=== PATIENT | female | born 1980 | race Caucasian/White ===

== ENCOUNTER 2018-02-19 16:19 | Outpatient (CLI) | payer MEDICAID ==
[2018-02-19 19:11] LABS: ADD UMIC NO; UR ASCORBIC ACID NEGATIVE (NEGATIVE); UR BILIRUBIN (Dip) NEGATIVE (NEGATIVE); UR BLOOD (Dip) NEGATIVE (NEGATIVE); UR CLARITY CLEAR (CLEAR); UR COLOR STRAW (YELLOW); UR GLUCOSE (Dip) NEGATIVE (NEGATIVE); UR KETONES (Dip) NEGATIVE (NEGATIVE); UR LEUKOCYTE ESTERASE (Dip) NEGATIVE Leu/ul (NEGATIVE); UR NITRITE (Dip) NEGATIVE (NEGATIVE); UR SPECIFIC GRAVITY (Dip) 1.004 (1.003-1.030); UR TOTAL PROTEIN (Dip) NEGATIVE (NEGATIVE); UR UROBILINOGEN (Dip) NEGATIVE (NEGATIVE)
== END 2018-02-19 20:15 | disposition home or self-care (01) ==
LOC: OBT 16:19 → L-D 16:20 → OBT 20:15
DX: O26.892 Other specified pregnancy related conditions, second trimester (principal); R10.30 Lower abdominal pain, unspecified; O09.522 Supervision of elderly multigravida, second trimester; Z3A.20 20 weeks gestation of pregnancy
CPT/HCPCS: 76817; 81003

== ENCOUNTER 2018-05-10 09:08 | Outpatient (CLI) | payer MEDICAID ==
[2018-05-10 12:37] LABS: COLLECTION PERIOD 24 hrs
[2018-05-10 13:47] LABS: COLLECTION PERIOD 24 hrs; CREATININE,URINE RANDOM 25.56 mg/dl (20-320); VOLUME 3200 ml/24hrs
[2018-05-10 13:48] LABS: VOLUME 3200 mls
[2018-05-11 11:28] LABS: CREATININE CLEARANCE 94.7 mls/min (84.0-162.0)
== END 2018-05-10 09:25 | disposition left against medical advice (07) ==
LOC: OBT 09:08 → L-D 09:12 → OBT 09:25
DX: O24.419 Gestational diabetes mellitus in pregnancy, unspecified control (principal); Z3A.32 32 weeks gestation of pregnancy
CPT/HCPCS: 82575; 84156

== ENCOUNTER 2018-05-11 10:35 | Outpatient (CLI) | payer MEDICAID ==
[2018-05-11 11:04] LABS: ADD MAN DIFF? NO
[2018-05-11 11:10] LABS: BASOPHILS % 0.3 % (0.0-2.0); EOSINOPHILS # 0.1 10^3/ul (0.0-0.5); EOSINOPHILS % 1.1 % (0.0-7.0); HEMATOCRIT 35.5 % (37.0-47.0); LYMPHOCYTES # 1.9 10^3/ul (0.8-2.9); LYMPHOCYTES % 21.7 % (15.0-51.0); MEAN CORPUSCULAR HEMOGLOBIN 29.9 pg (29.0-33.0); MEAN CORPUSCULAR HGB CONC 33.8 g/dl (32.0-37.0); MEAN CORPUSCULAR VOLUME 88.3 fl (82.0-101.0); MEAN PLATELET VOLUME 10.5 fl (7.4-10.4); MONOCYTE # 0.6 10^3/ul (0.3-0.9); MONOCYTES % 6.6 % (0.0-11.0); NEUTROPHIL # 6.2 10^3/ul (1.6-7.5); NEUTROPHILS % 69.2 % (39.0-77.0); PLATELET COUNT 155 10^3/UL (140-415); RED BLOOD COUNT 4.02 10^6/ul (4.20-5.40)
[2018-05-11 11:10] LABS: WHITE BLOOD COUNT 8.9 10^3/ul (4.8-10.8)
[2018-05-11 11:14] LABS: ADD UMIC NO; UR ASCORBIC ACID NEGATIVE (NEGATIVE); UR BILIRUBIN (Dip) NEGATIVE (NEGATIVE); UR BLOOD (Dip) NEGATIVE (NEGATIVE); UR CLARITY CLEAR (CLEAR); UR COLOR STRAW (YELLOW); UR GLUCOSE (Dip) 1+ mg/dL (NEGATIVE); UR KETONES (Dip) NEGATIVE (NEGATIVE); UR LEUKOCYTE ESTERASE (Dip) NEGATIVE Leu/ul (NEGATIVE); UR NITRITE (Dip) NEGATIVE (NEGATIVE); UR SPECIFIC GRAVITY (Dip) 1.004 (1.003-1.030); UR TOTAL PROTEIN (Dip) NEGATIVE (NEGATIVE); UR UROBILINOGEN (Dip) NEGATIVE (NEGATIVE)
[2018-05-11 11:25] LABS: ALANINE AMINOTRANSFERASE 23 IU/L (13-69); ALBUMIN 3.3 g/dl (3.3-4.9); ALBUMIN/GLOBULIN RATIO 1.03; ALKALINE PHOSPHATASE 115 IU/L (42-121); ANION GAP 12 (8-16); ASPARTATE AMINO TRANSFERASE 17 IU/L (15-46); BILIRUBIN,INDIRECT 0.2 mg/dl (0-1.1); BILIRUBIN,TOTAL 0.2 mg/dl (0.2-1.3); BLOOD UREA NITROGEN 6 mg/dl (7-20); CALCIUM 9.1 mg/dl (8.4-10.2); CARBON DIOXIDE 19 mmol/L (21-31); CHLORIDE 111 mmol/L (97-110); GLUCOSE 108 mg/dl (70-220); POTASSIUM 3.9 mmol/L (3.5-5.1); SODIUM 138 mmol/L (135-144); TOTAL PROTEIN 6.5 g/dl (6.1-8.1); URIC ACID 4.1 mg/dl (3.1-7.9)
[2018-05-11 11:32] LABS: INR 0.89; PROTIME 12.1 Sec (11.9-14.9); PT RATIO 0.9
[2018-05-11 11:56] LABS: PARTIAL THROMBOPLASTIN TIME 24.7 Sec (25.0-35.0)
[2018-05-11 13:04] LABS: HEMOGLOBIN A1C 5.7 % (0-5.9)
== END 2018-05-11 12:50 | disposition home or self-care (01) ==
LOC: OBT 10:35 → L-D 10:36 → OBT 12:50
DX: O24.419 Gestational diabetes mellitus in pregnancy, unspecified control (principal); O12.13 Gestational proteinuria, third trimester; Z3A.32 32 weeks gestation of pregnancy
CPT/HCPCS: 36415; 76818; 80053; 81003; 83036; 84560; 85025; 85610; 85730

== ENCOUNTER 2018-05-15 12:11 | Inpatient (IN) | payer MEDICAID ==
[2018-05-15 14:50] LABS: HEMOGLOBIN A1C 5.6 % (0-5.9)
[2018-05-15] MEDS ORDERED: ACETAMINOPHEN 325 MG TAB PO (15:00)
[2018-05-15] MEDS ORDERED: ONDANSETRON 4 MG INJ IV (15:00)
[2018-05-15] MEDS: LACTATED RINGER'S 1,000 ML IV (15:04)
[2018-05-15] MEDS: MAGNESIUM SULFATE 4 GM/100 ML 100 ML IV (15:07)
[2018-05-15] MEDS: BETAMET NA PHOS/AC(6 MG/ML) 5ML INJ IM (15:12)
[2018-05-15] MEDS: MAGNESIUM SULFATE 20 GM/500 ML 500 ML IV (15:39)
[2018-05-15 19:27] LABS: MAGNESIUM 4.6 mg/dl (1.7-2.5)
[2018-05-16 01:23] LABS: MAGNESIUM 5.2 mg/dl (1.7-2.5)
[2018-05-16] MEDS: MAGNESIUM SULFATE 20 GM/500 ML 500 ML IV ×3 (01:41→23:43)
[2018-05-16] MEDS: LACTATED RINGER'S 1,000 ML IV ×3 (01:42→23:43)
[2018-05-16 06:57] LABS: MAGNESIUM 5.6 mg/dl (1.7-2.5)
[2018-05-16] MEDS: metFORMIN 500 MG TAB PO ×2 (07:35→17:35)
[2018-05-16] MEDS: ACCU-CHEK XX ×4 (07:45→19:50)
[2018-05-16 12:25] LABS: MAGNESIUM 5.3 mg/dl (1.7-2.5)
[2018-05-16] MEDS: BETAMET NA PHOS/AC(6 MG/ML) 5ML INJ IM (15:38)
[2018-05-16 16:49] LABS: COLLECTION PERIOD 24 hrs
[2018-05-16 17:34] LABS: COLLECTION PERIOD 24 hrs; CREATININE CLEARANCE 147.1 mls/min (84.0-162.0); VOLUME 7675 ml/24hrs
[2018-05-16 17:44] LABS: VOLUME 7675 mls
[2018-05-16 18:16] LABS: MAGNESIUM 5.5 mg/dl (1.7-2.5)
[2018-05-17 01:32] LABS: MAGNESIUM 5.1 mg/dl (1.7-2.5)
[2018-05-17] MEDS: LACTATED RINGER'S 1,000 ML IV (05:20)
[2018-05-17] MEDS: MAGNESIUM SULFATE 20 GM/500 ML 500 ML IV (08:50)
== END 2018-05-17 13:30 | disposition home or self-care (01) | DRG 781 ==
LOC: OBT 12:11 → L-D 12:11 → OBT 13:05 → L-D 13:05
PROVIDERS: Obstetrics & Gynecology
DX: O24.419 Gestational diabetes mellitus in pregnancy, unspecified control (principal); O60.03 Preterm labor without delivery, third trimester; O10.913 Unspecified pre-existing hypertension complicating pregnancy, third trimester; O12.13 Gestational proteinuria, third trimester; O40.3XX0 Polyhydramnios, third trimester, not applicable or unspecified; O36.63X0 Maternal care for excessive fetal growth, third trimester, not applicable or unspecified; Z3A.33 33 weeks gestation of pregnancy
CPT/HCPCS: 59025; 76815; 76816; 76818; 82565; 82575; 82731; 82962; 83036; 83735; 84156

== ENCOUNTER 2018-05-22 09:50 | Outpatient (CLI) | payer MEDICAID ==
[2018-05-22 10:23] LABS: COLLECTION PERIOD 24 hrs
[2018-05-22 10:30] LABS: ADD MAN DIFF? NO
[2018-05-22 10:32] LABS: WHITE BLOOD COUNT 9.2 10^3/ul (4.8-10.8)
[2018-05-22 10:32] LABS: BASOPHILS % 0.3 % (0.0-2.0); EOSINOPHILS # 0.1 10^3/ul (0.0-0.5); EOSINOPHILS % 0.8 % (0.0-7.0); HEMATOCRIT 39.3 % (37.0-47.0); HEMOGLOBIN 13.4 g/dl (12.0-16.0); LYMPHOCYTES # 2.3 10^3/ul (0.8-2.9); LYMPHOCYTES % 24.6 % (15.0-51.0); MEAN CORPUSCULAR HEMOGLOBIN 29.9 pg (29.0-33.0); MEAN CORPUSCULAR HGB CONC 34.1 g/dl (32.0-37.0); MEAN CORPUSCULAR VOLUME 87.7 fl (82.0-101.0); MONOCYTE # 0.5 10^3/ul (0.3-0.9); MONOCYTES % 5.2 % (0.0-11.0); NEUTROPHIL # 6.3 10^3/ul (1.6-7.5); NEUTROPHILS % 68.3 % (39.0-77.0); PLATELET COUNT 146 10^3/UL (140-415); RED BLOOD COUNT 4.48 10^6/ul (4.20-5.40); RED CELL DISTRIBUTION WIDTH 14.2 % (11.5-14.5)
[2018-05-22 10:35] LABS: ADD UMIC YES; UR ASCORBIC ACID NEGATIVE (NEGATIVE); UR BACTERIA FEW /HPF (NONE SEEN); UR BILIRUBIN (Dip) NEGATIVE (NEGATIVE); UR BLOOD (Dip) NEGATIVE (NEGATIVE); UR CLARITY CLEAR (CLEAR); UR COLOR YELLOW (YELLOW); UR GLUCOSE (Dip) NEGATIVE (NEGATIVE); UR KETONES (Dip) NEGATIVE (NEGATIVE); UR LEUKOCYTE ESTERASE (Dip) TRACE Leu/ul (NEGATIVE); UR NITRITE (Dip) NEGATIVE (NEGATIVE); UR RBC 0 /HPF (0-5); UR SPECIFIC GRAVITY (Dip) 1.013 (1.003-1.030); UR TOTAL PROTEIN (Dip) NEGATIVE (NEGATIVE); UR UROBILINOGEN (Dip) NEGATIVE (NEGATIVE); UR WBC 1 /HPF (0-5)
[2018-05-22 10:50] LABS: ALANINE AMINOTRANSFERASE 15 IU/L (13-69); ALBUMIN 3.6 g/dl (3.3-4.9); ALBUMIN/GLOBULIN RATIO 1.09; ALKALINE PHOSPHATASE 134 IU/L (42-121); ANION GAP 14 (8-16); ASPARTATE AMINO TRANSFERASE 16 IU/L (15-46); BILIRUBIN,INDIRECT 0.4 mg/dl (0-1.1); BILIRUBIN,TOTAL 0.4 mg/dl (0.2-1.3); BLOOD UREA NITROGEN 8 mg/dl (7-20); CALCIUM 9.5 mg/dl (8.4-10.2); CARBON DIOXIDE 18 mmol/L (21-31); CHLORIDE 109 mmol/L (97-110); CREATININE 0.53 mg/dl (0.44-1.00); GLUCOSE 119 mg/dl (70-220); POTASSIUM 4.1 mmol/L (3.5-5.1); SODIUM 137 mmol/L (135-144); TOTAL PROTEIN 6.9 g/dl (6.1-8.1); URIC ACID 5.1 mg/dl (3.1-7.9)
[2018-05-22 10:53] LABS: INR 0.85; PARTIAL THROMBOPLASTIN TIME 24.7 Sec (25.0-35.0); PROTIME 11.7 Sec (11.9-14.9); PT RATIO 0.9
[2018-05-22 11:11] LABS: SCRET 0.53 mg/dl (0.44-1.00)
[2018-05-22 11:12] LABS: COLLECTION PERIOD 24 hrs; VOLUME 6600 ml/24hrs
[2018-05-22 11:13] LABS: VOLUME 6600 mls
[2018-05-22 11:32] LABS: CREATININE CLEARANCE 194.1 mls/min (84.0-162.0); CREATININE,URINE RANDOM 22.44 mg/dl (20-320)
[2018-05-22 11:33] LABS: 24HR URINE TOTAL PROTEIN > 600.0 mg/24hrs (42.0-225.0)
== END 2018-05-22 12:25 | disposition home or self-care (01) ==
LOC: OBT 09:50 → L-D 09:50 → OBT 12:25
DX: O13.3 Gestational [pregnancy-induced] hypertension without significant proteinuria, third trimester (principal); O36.8330 Maternal care for abnormalities of the fetal heart rate or rhythm, third trimester, not applicable or unspecified; O09.523 Supervision of elderly multigravida, third trimester; Z3A.33 33 weeks gestation of pregnancy
CPT/HCPCS: 36415; 76818; 80053; 81001; 82575; 84156; 84560; 85025; 85610; 85730

== ENCOUNTER 2018-05-28 19:47 | Outpatient (CLI) | payer MEDICAID ==
[2018-05-28 19:58] LABS: COLLECTION PERIOD 24 hrs
[2018-05-28 20:31] LABS: VOLUME 4525 mls
[2018-05-28 21:56] LABS: COLLECTION PERIOD 24 hrs; CREATININE,URINE RANDOM 25.75 mg/dl (20-320); VOLUME 4525 ml/24hrs
[2018-05-28 22:32] LABS: CREATININE 0.73 mg/dl (0.44-1.00)
[2018-05-29 01:25] LABS: CREATININE CLEARANCE 110.8 mls/min (84.0-162.0); SCRET 0.73 mg/dl (0.44-1.00)
== END 2018-05-28 21:55 | disposition home or self-care (01) ==
LOC: OBT 19:47 → L-D 19:48 → OBT 21:55
DX: O36.8330 Maternal care for abnormalities of the fetal heart rate or rhythm, third trimester, not applicable or unspecified (principal); O13.3 Gestational [pregnancy-induced] hypertension without significant proteinuria, third trimester; O09.523 Supervision of elderly multigravida, third trimester; Z3A.34 34 weeks gestation of pregnancy
CPT/HCPCS: 36415; 82565; 82575; 84156

== ENCOUNTER 2018-06-05 11:35 | Inpatient (IN) | payer MEDICAID ==
[2018-06-05 12:17] LABS: ADD MAN DIFF? NO; COLLECTION PERIOD 24 hrs
[2018-06-05 12:21] LABS: WHITE BLOOD COUNT 8.7 10^3/ul (4.8-10.8)
[2018-06-05 12:21] LABS: BASOPHILS % 0.2 % (0.0-2.0); EOSINOPHILS # 0.1 10^3/ul (0.0-0.5); HEMATOCRIT 33.3 % (37.0-47.0); HEMOGLOBIN 11.2 g/dl (12.0-16.0); LYMPHOCYTES # 2.3 10^3/ul (0.8-2.9); LYMPHOCYTES % 26.9 % (15.0-51.0); MEAN CORPUSCULAR HEMOGLOBIN 29.6 pg (29.0-33.0); MEAN CORPUSCULAR HGB CONC 33.6 g/dl (32.0-37.0); MEAN CORPUSCULAR VOLUME 87.9 fl (82.0-101.0); MEAN PLATELET VOLUME 11.8 fl (7.4-10.4); MONOCYTE # 0.6 10^3/ul (0.3-0.9); MONOCYTES % 6.8 % (0.0-11.0); NEUTROPHIL # 5.6 10^3/ul (1.6-7.5); NEUTROPHILS % 64.4 % (39.0-77.0); NUCLEATED RED BLOOD CELLS% 0.2 /100WBC (0.0-0.0); RED BLOOD COUNT 3.79 10^6/ul (4.20-5.40); RED CELL DISTRIBUTION WIDTH 14.5 % (11.5-14.5)
[2018-06-05 12:22] LABS: PLATELET COUNT 116 10^3/UL (140-415); POSITIVE DIFF @See below
[2018-06-05 12:37] LABS: INR 0.89; PROTIME 12.1 Sec (11.9-14.9); PT RATIO 0.9
[2018-06-05 12:38] LABS: ALANINE AMINOTRANSFERASE 23 IU/L (13-69); ALBUMIN 3.1 g/dl (3.3-4.9); ALBUMIN/GLOBULIN RATIO 1.03; ALKALINE PHOSPHATASE 134 IU/L (42-121); ANION GAP 14 (8-16); ASPARTATE AMINO TRANSFERASE 13 IU/L (15-46); BILIRUBIN,INDIRECT 0.3 mg/dl (0-1.1); BILIRUBIN,TOTAL 0.3 mg/dl (0.2-1.3); BLOOD UREA NITROGEN 4 mg/dl (7-20); CALCIUM 8.9 mg/dl (8.4-10.2); CARBON DIOXIDE 18 mmol/L (21-31); CHLORIDE 111 mmol/L (97-110); CREATININE 0.51 mg/dl (0.44-1.00); GLUCOSE 125 mg/dl (70-220); PARTIAL THROMBOPLASTIN TIME 23.9 Sec (25.0-35.0); POTASSIUM 3.7 mmol/L (3.5-5.1); SODIUM 139 mmol/L (135-144); TOTAL PROTEIN 6.1 g/dl (6.1-8.1); URIC ACID 4.3 mg/dl (3.1-7.9)
[2018-06-05 13:05] LABS: VOLUME 5100 mls
[2018-06-05 13:06] LABS: COLLECTION PERIOD 24 hrs; CREATININE CLEARANCE 140.6 mls/min (84.0-162.0); CREATININE,URINE RANDOM 20.24 mg/dl (20-320); SCRET 0.51 mg/dl (0.44-1.00); VOLUME 5100 ml/24hrs
[2018-06-05] MEDS: LABETALOL 100 MG TAB PO (21:24)
[2018-06-06 06:38] LABS: ADD MAN DIFF? NO
[2018-06-06 06:43] LABS: BASOPHILS % 0.3 % (0.0-2.0); EOSINOPHILS # 0.1 10^3/ul (0.0-0.5); EOSINOPHILS % 0.9 % (0.0-7.0); HEMATOCRIT 33.9 % (37.0-47.0); HEMOGLOBIN 11.3 g/dl (12.0-16.0); LYMPHOCYTES # 2.8 10^3/ul (0.8-2.9); LYMPHOCYTES % 31.4 % (15.0-51.0); MEAN CORPUSCULAR HEMOGLOBIN 29.6 pg (29.0-33.0); MEAN CORPUSCULAR HGB CONC 33.3 g/dl (32.0-37.0); MEAN CORPUSCULAR VOLUME 88.7 fl (82.0-101.0); MEAN PLATELET VOLUME 11.7 fl (7.4-10.4); MONOCYTE # 0.5 10^3/ul (0.3-0.9); MONOCYTES % 5.3 % (0.0-11.0); NEUTROPHIL # 5.5 10^3/ul (1.6-7.5); NEUTROPHILS % 61.3 % (39.0-77.0); NUCLEATED RED BLOOD CELLS% 0.2 /100WBC (0.0-0.0); PLATELET COUNT 117 10^3/UL (140-415); RED BLOOD COUNT 3.82 10^6/ul (4.20-5.40); RED CELL DISTRIBUTION WIDTH 14.5 % (11.5-14.5)
[2018-06-06 07:03] LABS: INR 0.93; PARTIAL THROMBOPLASTIN TIME 25.9 Sec (25.0-35.0); PROTIME 12.6 Sec (11.9-14.9)
[2018-06-06 07:10] LABS: ADD UMIC NO; UR ASCORBIC ACID NEGATIVE (NEGATIVE); UR BILIRUBIN (Dip) NEGATIVE (NEGATIVE); UR BLOOD (Dip) NEGATIVE (NEGATIVE); UR CLARITY CLEAR (CLEAR); UR COLOR YELLOW (YELLOW); UR GLUCOSE (Dip) NEGATIVE (NEGATIVE); UR KETONES (Dip) TRACE mg/dL (NEGATIVE); UR LEUKOCYTE ESTERASE (Dip) NEGATIVE Leu/ul (NEGATIVE); UR NITRITE (Dip) NEGATIVE (NEGATIVE); UR SPECIFIC GRAVITY (Dip) 1.009 (1.003-1.030); UR TOTAL PROTEIN (Dip) NEGATIVE (NEGATIVE); UR UROBILINOGEN (Dip) NEGATIVE (NEGATIVE)
[2018-06-06 07:23] LABS: ALANINE AMINOTRANSFERASE 19 IU/L (13-69); ALBUMIN 3.1 g/dl (3.3-4.9); ALKALINE PHOSPHATASE 132 IU/L (42-121); ANION GAP 14 (8-16); ASPARTATE AMINO TRANSFERASE 17 IU/L (15-46); BILIRUBIN,INDIRECT 0.2 mg/dl (0-1.1); BILIRUBIN,TOTAL 0.2 mg/dl (0.2-1.3); BLOOD UREA NITROGEN 4 mg/dl (7-20); CALCIUM 8.8 mg/dl (8.4-10.2); CARBON DIOXIDE 18 mmol/L (21-31); CHLORIDE 110 mmol/L (97-110); CREATININE 0.49 mg/dl (0.44-1.00); GLUCOSE 78 mg/dl (70-220); POTASSIUM 3.6 mmol/L (3.5-5.1); SODIUM 138 mmol/L (135-144); TOTAL PROTEIN 5.9 g/dl (6.1-8.1); URIC ACID 4.6 mg/dl (3.1-7.9)
[2018-06-06] MEDS: LABETALOL 100 MG TAB PO (08:44)
== END 2018-06-06 16:28 | disposition home or self-care (01) | DRG 781 ==
LOC: OBT 11:35 → L-D 11:35 → OBT 13:55 → PP1 13:55
DX: O14.03 Mild to moderate pre-eclampsia, third trimester (principal); O24.419 Gestational diabetes mellitus in pregnancy, unspecified control; Z3A.36 36 weeks gestation of pregnancy
CPT/HCPCS: 36415; 76818; 80053; 81003; 82575; 84156; 84560; 85025; 85384; 85610; 85730

== ENCOUNTER 2018-06-10 05:50 | Inpatient (IN) | payer MEDICAID ==
[2018-06-10] MEDS ORDERED: METHYLERGONOVINE 0.2 MG INJ IM ×2 (06:00→09:30)
[2018-06-10] MEDS ORDERED: CARBOPROST 250 MCG INJ IM ×2 (06:00→09:30)
[2018-06-10] MEDS ORDERED: MISOPROSTOL 200 MCG TAB PR ×2 (06:00→09:30)
[2018-06-10] MEDS ORDERED: OXYTOCIN 30 UNITS/LR 500 ML IV ×3 (06:00→09:30)
[2018-06-10] MEDS: LACTATED RINGER'S 1,000 ML IV ×5 (06:21→20:27)
[2018-06-10 06:37] LABS: ADD MAN DIFF? NO
[2018-06-10 06:45] LABS: WHITE BLOOD COUNT 9.2 10^3/ul (4.8-10.8)
[2018-06-10 06:45] LABS: BASOPHIL # 0.1 10^3/ul (0.0-0.1); BASOPHILS % 0.5 % (0.0-2.0); EOSINOPHILS # 0.1 10^3/ul (0.0-0.5); EOSINOPHILS % 1.1 % (0.0-7.0); HEMATOCRIT 36.7 % (37.0-47.0); HEMOGLOBIN 12.7 g/dl (12.0-16.0); LYMPHOCYTES # 2.7 10^3/ul (0.8-2.9); LYMPHOCYTES % 28.9 % (15.0-51.0); MEAN CORPUSCULAR HEMOGLOBIN 30.4 pg (29.0-33.0); MEAN CORPUSCULAR HGB CONC 34.6 g/dl (32.0-37.0); MEAN CORPUSCULAR VOLUME 87.8 fl (82.0-101.0); MEAN PLATELET VOLUME 11.8 fl (7.4-10.4); MONOCYTE # 0.5 10^3/ul (0.3-0.9); MONOCYTES % 5.7 % (0.0-11.0); NEUTROPHIL # 5.8 10^3/ul (1.6-7.5); NEUTROPHILS % 63.3 % (39.0-77.0); NUCLEATED RED BLOOD CELLS% 0.2 /100WBC (0.0-0.0); PLATELET COUNT 140 10^3/UL (140-415); RED BLOOD COUNT 4.18 10^6/ul (4.20-5.40); RED CELL DISTRIBUTION WIDTH 14.5 % (11.5-14.5)
[2018-06-10 06:59] LABS: PROTIME 12.2 Sec (11.9-14.9)
[2018-06-10] MEDS ORDERED: DIPHENHYDRAMINE 50 MG INJ IV ×2 (07:30→10:30)
[2018-06-10] MEDS ORDERED: morphine (1 MG/ML) 10ML SYRINGE IV ×3 (07:30)
[2018-06-10] MEDS ORDERED: ONDANSETRON 4 MG INJ IV ×2 (07:30→10:30)
[2018-06-10 08:16] LABS: HEPATITIS B SURFACE ANTIGEN NEGATIVE (NEGATIVE)
[2018-06-10 08:50] LABS: GLUCOSE 88 mg/dl (70-220)
[2018-06-10] MEDS ORDERED: BUPIVACAINE 0.75%/DEXT (SPINAL) 2 ML INJ (09:01)
[2018-06-10] MEDS ORDERED: FENTAnyl 50 MCG/ML VIAL (09:01)
[2018-06-10] MEDS ORDERED: morphine SULFATE/PF (10 MG/10 ML) INJ (09:01)
[2018-06-10] MEDS ORDERED: PHENYLephrine (100 MCG/ML) 10ML SYG (09:24)
[2018-06-10] MEDS ORDERED: DEXAMETHASONE 4 MG/ML 1 ML INJ (09:29)
[2018-06-10] MEDS ORDERED: NA PHOSPHATE/BIPHOS 133 ML ENEMA PR (09:30)
[2018-06-10] MEDS ORDERED: METHYLERGONOVINE 0.2 MG TAB PO (09:30)
[2018-06-10] MEDS ORDERED: CEFAZOLIN 2 GM/50 ML (PMX) 50 ML IV (09:30)
[2018-06-10] MEDS ORDERED: LANOLIN 7 GM TUBE TOP (09:30)
[2018-06-10] MEDS: CEFAZOLIN 2 GM/50 ML (PMX) 50 ML IV ×2 (09:48→17:29)
[2018-06-10 10:13] LABS: AADO2 Cord Arterial 75.1 mmHg; Arterial Cord Blood pCO2 49.8 mmHG (25-50); CBA Base Excess -3.2 mmol/L; CBA COHb 0.5 %; CBA Oxygen Sat 28.2 mmHG; CBA Total Hemglobin 15.9 g/dl; Fraction OxyHgb Cord Arterial 27.6 %; MODE ROOM AIR; MetHgb Cord Arterial 1.7 %; Sample Type CBA; Site CORD
[2018-06-10 10:15] LABS: CBV COHb 0.8 %; CBV Oxygen Sat 45.4 mmHG; CBV Total Hemglobin 15.2 g/dl; Cord Blood Venous AADO2 82.8 mmHg; Cord Blood Venous pO2 19.2 mmHG (15.0-45.0); Fraction OxyHgb Cord Venous 44.4 %; MODE ROOM AIR; MetHgb Cord Venous 1.4 %; Sample Type CBV; Site CORD
[2018-06-10] MEDS ORDERED: HYDROmorphONE 0.5 MG/0.5 ML SYG IV ×2 (10:30)
[2018-06-10] MEDS ORDERED: NALOXONE (0.4 MG/ML) INJ IV (10:30)
[2018-06-10] MEDS ORDERED: ZOLPIDEM 5 MG TAB PO (10:30)
[2018-06-10] MEDS: OXYTOCIN 30 UNITS/LR 500 ML IV (10:49)
[2018-06-10] MEDS: KETOROLAC 30 MG INJ IV ×2 (11:35→17:26)
[2018-06-10 14:08] LABS: HEMOGLOBIN A1C 5.8 % (0-5.9)
[2018-06-10 17:08] LABS: RAPID PLASMA REAGIN NONREACTIVE (NR)
[2018-06-10] MEDS ORDERED: LABETALOL 100 MG TAB PO (21:00)
[2018-06-10] MEDS: SENNA/DOCUSATE NA (8.6MG/50MG) TAB PO (21:12)
[2018-06-10] MEDS: LABETALOL 100 MG TAB PO (21:12)
[2018-06-11] MEDS: LACTATED RINGER'S 1,000 ML IV ×2 (01:18→03:48)
[2018-06-11] MEDS: CEFAZOLIN 2 GM/50 ML (PMX) 50 ML IV ×2 (01:21→09:28)
[2018-06-11] MEDS: KETOROLAC 30 MG INJ IV ×2 (01:29→09:28)
[2018-06-11] MEDS: SENNA/DOCUSATE NA (8.6MG/50MG) TAB PO ×2 (09:27→21:25)
[2018-06-11] MEDS: LABETALOL 100 MG TAB PO ×2 (09:27→21:25)
[2018-06-11 10:43] LABS: ADD MAN DIFF? NO
[2018-06-11 10:49] LABS: BASOPHILS % 0.2 % (0.0-2.0); EOSINOPHILS # 0.1 10^3/ul (0.0-0.5); EOSINOPHILS % 0.5 % (0.0-7.0); HEMATOCRIT 31.3 % (37.0-47.0); HEMOGLOBIN 10.5 g/dl (12.0-16.0); LYMPHOCYTES # 2.4 10^3/ul (0.8-2.9); LYMPHOCYTES % 19.9 % (15.0-51.0); MEAN CORPUSCULAR HEMOGLOBIN 29.7 pg (29.0-33.0); MEAN CORPUSCULAR HGB CONC 33.5 g/dl (32.0-37.0); MEAN CORPUSCULAR VOLUME 88.4 fl (82.0-101.0); MEAN PLATELET VOLUME 11.9 fl (7.4-10.4); MONOCYTE # 0.6 10^3/ul (0.3-0.9); MONOCYTES % 4.9 % (0.0-11.0); NEUTROPHILS % 73.8 % (39.0-77.0); PLATELET COUNT 127 10^3/UL (140-415); RED BLOOD COUNT 3.54 10^6/ul (4.20-5.40); RED CELL DISTRIBUTION WIDTH 14.6 % (11.5-14.5)
[2018-06-11 10:49] LABS: WHITE BLOOD COUNT 12.1 10^3/ul (4.8-10.8)
[2018-06-11] MEDS: BISACODYL (EC) 5 MG TAB PO (13:31)
[2018-06-11] MEDS: IBUPROFEN 800 MG TAB PO ×2 (13:31→21:26)
[2018-06-11] MEDS: HYDROCODONE/APAP (5/325) TAB PO (16:20)
[2018-06-12] MEDS: HYDROCODONE/APAP (5/325) TAB PO ×2 (03:26→12:46)
[2018-06-12] MEDS: IBUPROFEN 800 MG TAB PO ×3 (05:28→21:38)
[2018-06-12] MEDS: SENNA/DOCUSATE NA (8.6MG/50MG) TAB PO ×2 (09:00→21:00)
[2018-06-12 09:11] LABS: ADD MAN DIFF? NO
[2018-06-12 09:22] LABS: BASOPHILS % 0.3 % (0.0-2.0); EOSINOPHILS # 0.1 10^3/ul (0.0-0.5); EOSINOPHILS % 0.5 % (0.0-7.0); HEMATOCRIT 30.7 % (37.0-47.0); HEMOGLOBIN 10.1 g/dl (12.0-16.0); LYMPHOCYTES # 2.2 10^3/ul (0.8-2.9); LYMPHOCYTES % 17.6 % (15.0-51.0); MEAN CORPUSCULAR HEMOGLOBIN 30.1 pg (29.0-33.0); MEAN CORPUSCULAR HGB CONC 32.9 g/dl (32.0-37.0); MEAN CORPUSCULAR VOLUME 91.4 fl (82.0-101.0); MEAN PLATELET VOLUME 11.6 fl (7.4-10.4); MONOCYTE # 0.5 10^3/ul (0.3-0.9); NEUTROPHIL # 9.4 10^3/ul (1.6-7.5); NEUTROPHILS % 76.9 % (39.0-77.0); PLATELET COUNT 136 10^3/UL (140-415); RED BLOOD COUNT 3.36 10^6/ul (4.20-5.40); RED CELL DISTRIBUTION WIDTH 15.1 % (11.5-14.5)
[2018-06-12 09:22] LABS: WHITE BLOOD COUNT 12.2 10^3/ul (4.8-10.8)
[2018-06-12] MEDS: LABETALOL 100 MG TAB PO ×2 (09:25→21:24)
[2018-06-12] MEDS ORDERED: DEXTROSE 50% 50 ML SYRINGE IV ×2 (11:30)
[2018-06-12] MEDS ORDERED: GLUCOSE GEL 15 GRAM TUBE PO ×2 (11:30)
[2018-06-12] MEDS ORDERED: GLUCOSE GEL 15 GRAM TUBE BUCCAL (11:30)
[2018-06-12] MEDS ORDERED: GLUCAGON 1 MG INJ IM (11:30)
[2018-06-12] MEDS: metFORMIN 500 MG TAB GTB (12:00)
[2018-06-12] MEDS: ACCU-CHEK XX (17:35)
[2018-06-13] MEDS: IBUPROFEN 800 MG TAB PO (05:44)
[2018-06-13] MEDS: ACCU-CHEK XX ×2 (08:05→12:00)
[2018-06-13] MEDS: metFORMIN 500 MG TAB GTB (08:05)
[2018-06-13] MEDS: SENNA/DOCUSATE NA (8.6MG/50MG) TAB PO (09:00)
[2018-06-13] MEDS: LABETALOL 100 MG TAB PO (09:21)
[2018-06-13] MEDS: MEASLES,MUMPS,RUBELLA VACCINE INJ SC* (09:22)
[2018-06-13] MEDS: DIPHTH/TET/ACEL PERTUSS (ADULT) 0.5 ML VIAL IM* (12:00)
== END 2018-06-13 13:30 | disposition home or self-care (01) | DRG 766 ==
LOC: L-D 05:50 → PP1 12:51
PROVIDERS: Obstetrics & Gynecology
PROC: 10D00Z1 Extraction of Products of Conception, Low, Open Approach (ICD-10-PCS; principal; 2018-06-10 07:30)
PROC: 3E033VJ Introduction of Other Hormone into Peripheral Vein, Percutaneous Approach (ICD-10-PCS; 2018-06-10 07:30)
DX: O34.211 Maternal care for low transverse scar from previous cesarean delivery (principal); O34.13 Maternal care for benign tumor of corpus uteri, third trimester; O12.14 Gestational proteinuria, complicating childbirth; O16.4 Unspecified maternal hypertension, complicating childbirth; O24.429 Gestational diabetes mellitus in childbirth, unspecified control; Z3A.37 37 weeks gestation of pregnancy; Z37.0 Single live birth
CPT/HCPCS: 36415; 36600; 59025; 62319; 76816; 82803; 82947; 82962; 83036; 85025; 85610; 85730; 86592; 86850; 86900; 86901; 87340; 90715; 99464